=== PATIENT | female | born 1985 | race Two or more races ===

== ENCOUNTER → 2024-08-04 | Outpatient (CLI) | payer MEDICAID, SELFPAY ==
--- NOTE | 2024-08-04 10:06 | XR_ITS ---
Examination: Esophagram standard Fluoroscopy 13 spot fluoroscopic films of the esophagus Upright PA chest single view Upright soft tissue lateral neck single view Date and time: August 04, 2024 1021 hours INDICATIONS: Difficulty swallowing 6 months. TECHNIQUE AND FINDINGS: Upright PA chest normal heart size 2 mm nodule left upper lobe Soft tissue lateral neck normal epiglottis Primary peristaltic esophageal waves noted Numerous secondary and tertiary esophageal contractions Moderate continuous gastroesophageal reflux No stricture gastroesophageal junction Small sliding esophageal hernia IMPRESSION: Significant esophageal dysmotility Moderate continuous gastroesophageal reflux No stricture the gastroesophageal junction
== END | disposition home or self-care (01) ==
LOC: CDIM 09:53
PROVIDERS: PCP Internal Medicine; Referring Provider Internal Medicine; Visit Provider Internal Medicine
DX: K21.9 Gastro-esophageal reflux disease without esophagitis (principal)
CPT/HCPCS: 74220; A4699